=== PATIENT | female | born 1975 | race American Indian/Alaskan Native ===

== ENCOUNTER 2019-03-12 17:23 | Emergency (ER) | payer OTHER ==
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
[2019-03-12 17:39] VITALS: BP 153/92
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
[2019-03-12] MEDS ORDERED: IBUPROFEN PO ONE (19:33)
== END 2019-03-12 20:46 | disposition home or self-care (01) ==
LOC: ED 17:23
DX: S29.012A Strain of muscle and tendon of back wall of thorax, initial encounter (principal); I10 Essential (primary) hypertension; E11.9 Type 2 diabetes mellitus without complications; Z79.899 Other long term (current) drug therapy; V89.2XXA Person injured in unspecified motor-vehicle accident, traffic, initial encounter; Y93.89 Activity, other specified; Y92.488 Other paved roadways as the place of occurrence of the external cause; Y99.8 Other external cause status
CPT/HCPCS: 72070; 99283